=== PATIENT | female | born 1975 | race Hispanic/Latino ===

== ENCOUNTER 2024-01-17 16:40 | Emergency (ER) | payer SELFPAY ==
[2024-01-17 16:58] VITALS: BP 153/89
--- NOTE | 2024-01-17 18:42 | ED.GENMED ---
History of Present Illness
General
Chief Complaint: Dental Problem
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
Exam Limitations: none
Time Seen by Provider: 01/17/24 18:01
Nursing documentation reviewed up to this point in time: agreed with
Travel History
Have you had any contact with someone who has COVID-19?: No
Do you have any symptoms of coronavirus? Fever > 100 degrees, chills, cough, shortness of breath, sore throat, loss of taste or smell, muscle aches, or headache?: No
History of Present Illness
History of Present Illness:
pt is a 48 y/o F with no reported chronic medical problems
here with > 1 week of R upper dental pain
had a filling fall out and has had pain with cold liquids and chewing
the pain is in her right mouth and radiates to R ear
she saw a dentist and had an xray and then was told she would need a root canal. pt doesn' thave dental insurance and they told her it would cost 2000 and she couldn't afford. she had some putty applied to the area but has still had a lot of pain
she was taking 'pills and pills' - showed me naproxen 550 mg
total of probably 10 tabs per day
today she started vomiting and vomited 7 times.
apparently at work, she looked pale
Past History
Past History
ED Past Medical History: None
ED Past Surgical History: None
Phy Exam
Physical Exam
Physical Exam:
GENERAL: Alert , nontoxic, slightly pale
EYE: pupils equal and reactive, no scleral icterus
NECK: Supple
ENT: b/l TMs normal
no facial swelling
o/p clr, mmm.
right upper 1st molar with dental putty
tender to percussion
no periapical abscess
no trismus
CARDIAC: Regular rate and rhythm .
LUNGS: Clear breath sounds bilaterally, no acute respiratory distress, no wheezes/rales/rhonchi
abdomen: soft, nontender ,normal bowel sounds, nondositended
NEUROLOGICAL: Alert and oriented, no focal neuro deficits
SKIN: Warm and dry, skin intact.
MUSCULOSKELETAL: No edema, well perfused.
PSYCH: Normal and appropriate interaction.
Course
Orders/Labs/Results
Orders:
Orders
01/17/24 17:04
Electrocardiogram (*1) Urgent
Reason for Study: Syncope
EKG- Treatment ONCE
01/17/24 18:36
Test Result ONCE
01/17/24 18:37
0.9% Sodium Chloride 1000 ml [Nss] 1,000 ml IV BOLUS
Ondansetron Injectable [Zofran] 4 mg IV NOW STA
01/17/24 19:10
Alcohol Urgent
Complete Blood Count/With Diff Urgent
Comprehensive Metabolic Panel Urgent
HCG, Serum Qualitative Screen Urgent
Lipase Urgent
Salicylate Urgent
Tylenol [Acetaminophen] Urgent
01/17/24 19:32
Lactic Acid Urgent
01/17/24 20:01
Hydrocodone 5/APAP 325 [[place] 5/325] 1 tablet PO NOW STA
01/17/24 20:11
Urine Drug Abuse Screen Urgent
Date Specimen was Collected: 01/17/24
Time Specimen was Collected: 20:10
Abnormal Lab Results
01/17/24
19:10
RBC 3.98 L 10^6/uL
(4.20-5.40)
Hgb 11.5 L g/dL
(12.0-16.0)
Hct 34.0 L %
(37.0-47.0)
RDW 15.1 H %
(11.5-14.5)
MPV 10.6 H fL
(7.4-10.4)
Absolute Neuts (auto) 9.1 H 10^3/uL
(1.4-6.5)
Absolute Lymphs (auto) 1.0 L 10^3/uL
(1.2-3.4)
Neutrophils % 85.7 H %
(42.2-75.2)
Lymphocytes % 9.8 L %
(20.5-51.1)
Creatinine 0.3 L mg/dL
(0.6-1.0)
Glucose 116 H mg/dl
(70-99)
Salicylates < 1.0 L mg/dl
(2.0-20.0)
Acetaminophen < 10 L ug/ml
(10-30)
01/17/24 19:10
01/17/24 19:10
Vital Signs
Initial and Last Documented VS:
Initial Vital Signs
Temp Pulse Resp BP Pulse Ox
98.2 F 66 16 153/89 100
01/17/24 16:58 01/17/24 16:58 01/17/24 16:58 01/17/24 16:58 01/17/24 16:58
Last Documented Vital Signs
Temp Pulse Resp BP Pulse Ox
98.2 F 66 16 127/78 99
01/17/24 16:58 01/17/24 21:05 01/17/24 21:05 01/17/24 21:05 01/17/24 21:05
MDM/Problems Addressed
Differential Diagnosis Includes:
dental pain, dentla infection, nsaid toxicity, metabolic acidosis
MDM/Problems Addressed:
48 y/O F
language line used
bulgarian speaking
1 week fo dental pain
initially told me she didn't see dental but then she did, and was deb dshe needs a root canal, had dental putty
unfortuantely pt cannot afford root canal
continues to have pain so she has been taking a naproxen 550 mg tabs for the past few days, she says proabably 10 in 24 hours becuase that is how she gets pain relief
she started vomiting today, vomited 7 times
she looks slightly pale here, is orieneted, has no abdominal tendernss
but i was concerned for acidosis related to NSAID overuse
i spoke with dr. [place] vehicle sales professional for [facility] who recommended w/u here and obs for a few hours as long as labs normal and sypmtoms resolve
pt had screening labs, qtc not prolonged, labs reassuring, hg 11.5 no basleine but normal BUN and no persistent pvomiting/abd pain or black stool
her AG is normal
her nauesa resolved
given 1 dose of vicodin here and sent home with instruction sofr tylenol 3 times a day and oxy prn bid
no nsaids for a few days
she proabaly got a mild gastritis from the NSAIDS
abx for mouth
no sign sof dental abscess.
*Critical Care Note
Total Time (30-74mins, 75-104mins- exclusive of procedures): Not Applicable
ED Attending Note
-
Portions of this chart may have been created with voice recognition software.� Occasional wrong word or��sound alike� substitutions may have occurred due to the inherent limitations of voice recognition software.
Discharge Plan
Departure
Patient Disposition: Home (Routine Discharge)
Date of Disposition: 01/17/24
Time of Disposition: 21:09
Patient with high blood pressure during this ER visit?: No
Condition: Fair
Covid-19: Not Applicable
Discharge Problem:
Pain, dental, Vomiting
Instructions: Dental Pain (DC)
Prescriptions:
New
oxycodone 5 mg tablet
5 mg PO BID PRN (Reason: Pain) Qty: 10 0RF
penicillin V potassium 500 mg tablet
500 mg PO TID Qty: 21 0RF
Referrals:
NONE,* [Family Provider] -
Stand Alone Forms: Return to Work
Activity Restrictions/Additional Instructions:
I was concerned that you are taking too much naproxen. Please be sure to only take 1 tablet twice a day as needed for pain. THIS MAY HAVE UPSET YOUR STOMACH SO PROBABLY IT WOULD BE BEST TO AVOID IT FOR A FEW DAYS.
you can take 2 regular strength Tylenol tablets 3 times a day. If the pain is more severe you can do oxycodone 5 mg twice a day. This can make you sleepy, you should not drink alcohol or drive or work on this medication. To treat a potential
infection you can take penicillin 3 times a day for 7 days. You can try calling [facility] and making an appointment with them to have your tooth treated. Otherwise you can try going into the city, you can try calling [facility] [place]
[facility] have [facility] clinics, [facility] has 1
Return for facial swelling, fever, inability to open your mouth, severe pain, continued vomiting or any concerns.
Me preocupaba que estuviera tomando demasiado naproxeno. Aseg�rese de zo solo 1 tableta dos veces al d�a seg�n sea necesario para el dolor. ESTO PUEDE HABERLE MOLESTAR EL EST�TYRONE, POR LO QUE PROBABLEMENTE SER�A MEJOR EVITARLO POR UNOS D�.
Puede zo 2 tabletas de Tylenol de potencia regular 3 veces al d�a. Si el dolor es m�s intenso, puede administrar oxicodona 5 mg dos veces al d�a. [place] puede causarle steven�o; no debe beber alcohol, conducir ni zo sharyn medicamento. Para tratar
vy posible infecci�n puedes zo penicilina 3 veces al d�a parker 7 d�as. Puede intentar llamar a la [facility] [place] y concertar vy paula con ellos para que le traten los dientes. De lo contrario, puedes intentar ir a la ciudad, puedes
intentar llamar a los hospital[facility] de [place] para [place] cu�les tienen cl�nicas dentales, [place] tiene 1
Regrese si tiene hinchaz�n facial, fiebre, incapacidad para abrir la boca, dolor intenso, v�mitos continuos o cualquier inquietud.
Interventions
Interventions:
*General Assessment Last Done: 01/17/24 16:58
*ED COVID-19 Vaccine History Last Done: 01/17/24 16:58
*Nursing Disposition Last Done: 01/17/24 21:57
Discharge Date and Time
Discharge Date/Time: 01/17/24 21:58
Print Language: SYRIAC
[2024-01-17] MEDS: NSS 1000 IV (19:25)
[2024-01-17] MEDS: ZOFRAN 4 MG IV (19:25)
[2024-01-17 19:29] LABS: % Basophils 0.1 % (0-2); % Immature Granulocytes 0.2 % (0-0.5); % Lymphocytes 9.8 % (20.5-51.1); % Monocytes 4.2 % (1.7-9.3); % Neutrophils 85.7 % (42.2-75.2); Absolute Monocytes 0.4 10^3/uL (0.1-0.6); Absolute Neutrophils 9.1 10^3/uL (1.4-6.5); Hemoglobin 11.5 g/dL (12.0-16.0); Mean Corp Hgb Conc. 33.8 g/dL (33.0-37.0); Mean Corpuscular Hgb 28.9 pg (27.0-31.0); Mean Corpuscular Volume 85.4 fL (81.0-99.0); Mean Platelet Volume 10.6 fL (7.4-10.4); Nucleated Red Blood Cells % 0 %; Platelet Count 273 10^3/uL (130-400); Red Blood Cell Count 3.98 10^6/uL (4.20-5.40); Red Cell Dist. Width 15.1 % (11.5-14.5); White Blood Cell Count 10.6 10^3/uL (4.8-10.8)
[2024-01-17 19:53] LABS: HCG, Serum Qualitative Screen Negative
[2024-01-17 19:56] LABS: ALT (SGPT) 18 U/L (0-35); AST (SGOT) 22 U/L (14-36); Albumin 4.1 g/dl (3.5-5.0); Alkaline Phosphatase 59 U/L (38-126); Blood Urea Nitrogen 13 mg/dl (7-17); Carbon Dioxide 27 mmol/L (22-30); Chloride 103 mmol/L (98-107); Glucose 116 mg/dl (70-99); Potassium 4.1 mmol/L (3.5-5.1); Sodium 137 mmol/L (135-145); Total Bilirubin 0.4 mg/dl (0.2-1.3); eGFR > 60.00
[2024-01-17 20:01] LABS: Lactic Acid 0.8 mmol/L (0.7-2.0)
[2024-01-17 20:08] LABS: Acetaminophen < 10 ug/ml (10-30); Lipase 57 U/L (23-300); Salicylate < 1.0 mg/dl (2.0-20.0)
[2024-01-17 20:12] LABS: Alcohol None Detected
[2024-01-17] MEDS: NORCO 5/325 1 TABLET PO (20:16)
[2024-01-17 20:48] LABS: Amphetamines Negative (Negative); Barbiturates Negative (Negative); Benzodiazepines Negative (Negative); Buprenorphine Negative (Negative); Cocaine Negative (Negative); Marijuana Negative (Negative); Methadone Negative (Negative); Methamphetamines Negative (Negative); Opiates Negative (Negative); Phencyclidine Negative (Negative); Tricyclic Antidepressants Negative (Negative)
[2024-01-17 21:05] VITALS: BP 127/78
== END 2024-01-17 21:58 | disposition home or self-care (01) ==
LOC: EMR 16:40
PROVIDERS: Physician Assistant; EMERGENCY PHYSICIAN Emergency Medicine
DX: R11.10 Vomiting, unspecified (principal); K08.89 Other specified disorders of teeth and supporting structures
CPT/HCPCS: 99284; 96374; 96361; 80053; 80143; 80179; 80306; 82077; 83605; 83690; 84703; 85025; 93005